=== PATIENT | female | born 1945 | race Caucasian/White ===

== ENCOUNTER 2016-12-11 10:53 | Inpatient (IN) ==
[~2016-12-11 10:53] MED LIST: DIPRIVAN 1% 100 ML ONE; QUELICIN ONE
[2016-12-11] MEDS ORDERED: EPINEPHRINE SYRINGE ONE (11:00)
[2016-12-11] MEDS ORDERED: DIPRIVAN 1% IV STA (11:01)
--- NOTE | 2016-12-11 11:10 | PROVIDER DOCUMENTATION ---
HPI-Cardiopulmonary Arrest - General Time Seen by Provider: 12/11/16 10:59 Source: RN notes reviewed Unable to obtain history due to:: other (pt condition) Allergies/Adverse Reactions: Allergies Allergy/AdvReac Type Severity Reaction Status Date / Time codeine Allergy RASH Verified 07/22/16 00:58 levofloxacin [From Levaquin] Allergy RASH Verified 07/22/16 00:58 pentazocine lactate * Allergy RASH Verified 07/22/16 00:58 [From Talwin] procaine HCl * Allergy RASH Verified 07/22/16 00:58 [From Novocain] propoxyphene HCl * Allergy RASH Verified 07/22/16 00:58 [From Darvon] Home Medications: Home Medication List Medication Instructions Recorded Confirmed Last Taken Type Calcium 1 tab PO DAILY 06/26/14 07/22/16 12/11/16 05:00 History Cetirizine HCl [Zyrtec] 10 mg PO DAILY 06/26/14 07/22/16 12/10/16 05:00 History Sitagliptin Phosphate [Januvia] 100 mg PO DAILY 05/07/16 07/22/16 12/10/16 05: 00 History Tizanidine HCl [Zanaflex] 4 mg PO DAILY 05/07/16 07/22/16 12/09/16 22:00 History Lactulose 30 ml PO BID 06/21/16 07/22/16 07/21/16 History Omeprazole [Prilosec] 20 mg PO DAILY 06/21/16 07/22/16 12/10/16 05:00 History Rifaximin [Xifaxan] 550 mg PO BID 06/21/16 07/22/16 07/21/16 History Spironolactone 25 mg PO DAILY 06/21/16 07/22/16 07/21/16 08:00 History Venlafaxine HCl 25 mg PO DAILY 06/21/16 07/22/16 12/10/16 05:00 History Insulin Glargine [Lantus] 20 unit SUBQ QHS #3 insuln.pen 06/27/16 07/22/1612/10 22:00 Rx Insulin Lispro [Humalog Kwikpen 100 unit SQ AC #0 06/27/16 07/22/16 07/21/16 08 :00 Rx U-100] Iron Carbonyl/Vit C/Vit B12/FA 1 each PO DAILY #90 tablet 06/27/16 07/22/16 05:00 Rx [Icar-C Plus] LISINOpril [Prinivil] 2.5 mg PO DAILY #30 tablet 06/27/16 07/22/16 12/10/16 05: 00 Rx Nadolol [Corgard] 20 mg PO DAILY #30 tablet 06/27/16 07/22/16 12/10/16 05:00 Rx Magnesium Amino Acid Chelate 100 mg PO DAILY 07/22/16 07/22/16 12/10/16 05:00 History [Magnesium] Tramadol HCl 50 mg PO Q6H PRN 07/22/16 07/22/16 07/21/16 History - History of Present Illness-C/P Arrest Initial Comments: patient is a 71 y/o F that coded in Ct scan. pt was there outpatient having lung biopsy in which she lost a pulse. Patient was give 5 minutes of CPR and intubate, pt was successfully revived and moved to the ER> Reason for Code Blue?: full arrest Witnessed arrest?: Yes Noted by:: nurse Bystander CPR?: Yes CPR initiated before doctor arrival?: Yes Down-time before ACLS? (in minutes, if known): 5 Initial Findings: unresponsive, asystole, no respirations, no pulse Treatment initiated prior to doctor arrival?: Initiated oxygen, Initiated CPR/ thumper Recently seen or treated by another doctor?: Yes Review of Systems - Adult - REVIEW OF SYSTEMS - ADULT ROS:: unobtainable per condition Constitutional: reports: see HPI All Other Systems: Reviewed and Negative Past History - Adult - PAST MEDICAL HISTORY-ADULT Review of Records: reports: Nursing Assessment Review, Medications Reviewed Cardiovascular: reports: HTN Respiratory: reports: asthma Gastrointestinal: reports: GERD Musculoskeletal: reports: arthritis Endocrine/Immune: reports: Diabetes - PRIOR SURGERIES/PROCEDURES Surgical/Procedure History: reports: hysterectomy, orthopedic (extremity) (toes and finger surgery), other (cataract removal) - IMMUNIZATION STATUS Childhood Immunizations: See Nurse Assessment Flu Vaccine: See Nurse Assessment - FAMILY HISTORY Family History: reviewed, not pertinent - SOCIAL HISTORY Smoking: quit greater than 1 year, cigarettes Living Situation: family Physical Exam-General - PHYSICAL EXAM-ADULT Exam Limited by: pt condition Initial Vital Signs Reviewed: Yes - CONSTITUTIONAL General Appearance: other (unresponsive) - HEAD, EARS, NOSE, MOUTH & THROAT HENMT: normocephalic/atraumatic, other (no vomit in oral airy). negative: angioedema - RESPIRATORY Respiratory: other (no respirations , breath sounds post intubation) - CARDIOVASCULAR Cardiovascular: other (no pulse, pt has pulse with chest compressions) - GASTROINTESTINAL (ABDOMEN) Abdominal Exam: soft. negative: distended - MUSCULOSKELETAL Extremity: no pedal edema. negative: deformity - SKIN Integumentary: cyanosis, pallor - PSYCHIATRIC Psych/Mental Status: other (unresponsive) Progress - PLAN OF CARE/RESULTS Progress/Plan/Lab Results: patient was given 5 minutes of CPR in which patient regained spontaneous pulse post intubation. pt was then moved to the ER 1130-pt was extubated by , pt was a/o x 3 and talking. Vital Signs Pulse BP Pulse Ox 12/11/16 12:04 86 117/68 100 12/11/16 11:55 86 125/58 100 12/11/16 11:50 93 H 127/55 100 12/11/16 11:45 88 135/63 100 12/11/16 11:40 89 135/60 100 12/11/16 11:35 92 H 144/66 98 12/11/16 11:30 96 H 144/66 92 L 12/11/16 11:26 99 H 163/91 92 L 12/11/16 11:20 100 H 174/117 86 L 12/11/16 11:17 98 H 161/101 81 L 12/11/16 11:11 84 115/69 92 L 12/11/16 11:05 93 H 132/81 91 L 12/11/16 11:00 90 103/69 97 12/11/16 10:56 96 H 126/74 99 codeine Allergy (Verified 07/22/16 00:58) RASH levofloxacin [From Levaquin] Allergy (Verified 07/22/16 00:58) RASH pentazocine lactate * [From Talwin] Allergy (Verified 07/22/16 00:58) RASH procaine HCl * [From Novocain] Allergy (Verified 07/22/16 00:58) RASH propoxyphene HCl * [From Darvon] Allergy (Verified 07/22/16 00:58) RASH Calcium 1 tab PO DAILY 06/26/14 Cetirizine HCl [Zyrtec] 10 mg PO DAILY 06/26/14 Sitagliptin Phosphate [Januvia] 100 mg PO DAILY 05/07/16 Tizanidine HCl [Zanaflex] 4 mg PO DAILY 05/07/16 Lactulose 30 ml PO BID 06/21/16 Omeprazole [Prilosec] 20 mg PO DAILY 06/21/16 Rifaximin [Xifaxan] 550 mg PO BID 06/21/16 Spironolactone 25 mg PO DAILY 06/21/16 Venlafaxine HCl 25 mg PO DAILY 06/21/16 Insulin Glargine [Lantus] 20 unit SUBQ QHS #3 insuln.pen 06/27/16 Insulin Lispro [Humalog Kwikpen U-100] 100 unit SQ AC #0 06/27/16 Iron Carbonyl/Vit C/Vit B12/FA [Icar-C Plus] 1 each PO DAILY #90 tablet LISINOpril [Prinivil] 2.5 mg PO DAILY #30 tablet 06/27/16 Nadolol [Corgard] 20 mg PO DAILY #30 tablet 06/27/16 Magnesium Amino Acid Chelate [Magnesium] 100 mg PO DAILY 07/22/16 Tramadol HCl 50 mg PO Q6H PRN 07/22/16 Orders Category Date Time Status Cardiac Monitoring DIRECTED Care 12/11/16 11:01 Active Neurological Check Q12-HR ASSESS Care 12/11/16 11:01 Active Oxygen Therapy- ED Nursing DIRECTED Care 12/11/16 11:01 Active Saline Loc NOW Care 12/11/16 11:01 Active CHEST-PORTABLE [RAD] Stat Exams 12/11/16 11:21 Taken CBC WITH ELECTRONIC DIFF [HEME] Stat Lab 12/11/16 11:01 Uncollected CK PROFILE [SP CHEM] Stat Lab 12/11/16 11:01 Uncollected COMPREHENSIVE METABOLIC PANEL [CHEM] Stat Lab 12/11/16 11:01 Uncollected MAGNESIUM [CHEM] Stat Lab 12/11/16 11:01 Uncollected PRO B-NATRIURETIC PEPTIDE Stat Lab 12/11/16 11:01 Uncollected PROTIME WITH INR [COAG] Stat Lab 12/11/16 11:01 Uncollected PTT [COAG] Stat Lab 12/11/16 11:01 Uncollected TROPONIN T Stat Lab 12/11/16 11:01 Uncollected Epinephrine Syringe Med 12/11/16 11:00 Discontinued 1 mg .ROUTE .STK-MED ONE Propofol [Diprivan 1%] Med 12/11/16 11:01 Discontinued 10 mg IV STAT STA Propofol [Diprivan 1%] 100 ml Med 12/11/16 11:15 Active IV As Directed EKG [EKG] Stat Ther 12/11/16 11:01 Ordered spoke with accepts pt to his service - XRAY 1 XRAY Study: Chest Impression: Abnormal XRAY Interpretation: 5% pneumothroax on right upper lung - CONSULTS/PCP/HOSPITALIST Notification #1 *Consult/PCP/Hospitalist*: Dr. Carina Steven Time Discussed: 11:07 Consult Disposition: Will see in ED #2 Consult: Dr. Reich Time Discussed: 11:15 Procedures - INTUBATION Time of Intubation: 10:53 Mallampati Class: 1 Intubation Method: orotracheal Equipment: ETT Tube Size (cm): 7.5 Pretreated with 100% Oxygen?: Yes Breath Sounds after Intubation: equal ETT Primary Tube Confirmation: Capnometry CO2 Change, Direct Visualization, Chest Rise and Fall Intubation Complications: no complications Vent Settings: See Respiratory Therapy Notes Departure - Departure Time of Disposition Order: 12:15 DIAGNOSIS: Cardiac arrest, Pneumothorax on left Acute respiratory failure Qualifiers: Respiratory failure complication: hypoxia Qualified Code(s): J96.01 - Acute respiratory failure with hypoxia Disposition: ADMITTED INPATIENT 09 Certified Medical Emergency: Emergent Condition: Stable - Critical Care Note Total Time (mins): 45 Critical Care Statement: This patient required my direct personal management to treat or rule out processes, the absence of which, could potentiallly result in sudden, clinically significant life or limb threatening deterioration. Attestation - Scribe Verification/Attestation Scribe:: Parveen Guzman Acting as Scribe for:: Carlota Hsu Scribe documention review:: This chart was documented by a scribe and accurately reflects the service the provider performed and the decisions made by the provider. Physician Attestation - Physician Attestation I, the provider, attest to the following statement:: Carlota Hsu Physician documentation Attestation:: This documentation recorded by the scribe accurately reflects the service I personally performed and the decisions made by me.
[2016-12-11] MEDS ORDERED: DIPRIVAN 1% 100 ML IV SCH (11:15)
--- NOTE | 2016-12-11 12:24 | Diag Imaging Result Document ---
PROCEDURE NAME: CHEST-PORTABLE - 12/11/2016 AP PORTABLE UPRIGHT CHEST AT 1130 HOURS: FINDINGS: There is a small apical pneumothorax on the left measuring less than 9 mm. This was not present on 06/25/2016, which is the most recent previous chest radiograph. There are patchy alveolar opacities, particularly visible over the lingula, secondary to recent left upper lobe biopsy and pulmonary hemorrhage. The heart size and pulmonary vascularity are within normal limits. IMPRESSION: Pulmonary hematoma in the left upper lobe. Small left apical pneumothorax. Dr. Jamey Steven is aware of this complication. [facility]
[2016-12-11 12:37] LABS: MANUAL DIFF NEEDED? NO
[2016-12-11] MEDS ORDERED: ZOFRAN IV PRN (12:37)
[2016-12-11] MEDS ORDERED: TYLENOL PO PRN (12:37)
[2016-12-11 12:47] LABS: BASO% 0.2 % (0.0-0.8); EOS# 0.25 X1000 (0.0-0.7); EOS% 2.7 % (0.0-10.0); HEMOGLOBIN 13.8 g/dL (12.0-16.0); IMM GRAN# 0.04 X1000 (0.0-0.04); IMM GRAN% 0.4 % (0.0-0.5); LYMPH# 1.31 X1000 (1.2-3.4); LYMPH% 14.1 % (20.5-51.1); MCHC 33.7 g/dL (33-37); MCV 95.1 FL (81-99); MONO% 5.4 % (1.7-9.3); MPV 10.3 FL (7.4-10.4); NEUT% 77.2 % (42.2-75.2); PLT 99 X1000 (130-400); RBC 4.31 XMIL (4.2-5.4)
[2016-12-11 12:50] LABS: INR 1.2; PROTIME 12.7 Seconds (9.2-11.7); PTT 28.7 Seconds (22.0-36.0)
[2016-12-11 12:57] LABS: AGAP 12; ALBUMIN 3.1 g/dL (3.5-5.0); ALKALINE PHOSPHATASE 102 U/L (32-104); BUN 12 mg/dL (8-22); CALCIUM 8.9 mg/dL (8.8-10.2); CHLORIDE 98 mmol/L (98-107); CK PROFILE 67 U/L (24-173); COSMO 281; GOT 35 U/L (10-30); GPT 17 U/L (10-36); MAGNESIUM 1.4 mg/dL (1.5-2.7); POTASSIUM 4.9 mmol/L (3.5-5.1); SODIUM 137 mmol/L (136-145); TCO2 27 mmol/L (25-35); TOTAL BILIRUBIN 2.14 mg/dL (0.20-1.00); TOTAL PROTEIN 6.8 g/dL (6.3-8.3)
[2016-12-11] MEDS ORDERED: ZOFRAN ONE (13:09)
[2016-12-11] MEDS ORDERED: DILAUDID ONE (13:09)
[2016-12-11] MEDS ORDERED: DILAUDID IV ONE (13:16)
[2016-12-11] MEDS ORDERED: ZOFRAN IV ONE (13:16)
[2016-12-11] MEDS: NS 1,000 ML IV SCH ×2 (13:23→19:54)
--- NOTE | 2016-12-11 16:21 | Diag Imaging Result Document ---
PROCEDURE NAME: CHEST-PORTABLE - 12/11/2016 AP SEMI-UPRIGHT PORTABLE CHEST AT 1600 HOURS: FINDINGS: There is a small apical pneumothorax which is even smaller in appearance than on the previous study at 1130 hours measuring less than 3 mm in thickness. This film is also with slightly more in expiration than the previous exam. There is still hazy opacity over the lingula. IMPRESSION: Diminishing left pneumothorax.
[2016-12-11] MEDS ORDERED: APRESOLINE IV PRN (19:54)
[2016-12-11] MEDS ORDERED: NS 1,000 ML IV SCH (20:02)
[2016-12-11 20:24] LABS: URINE CULTURE NEEDED? NO; URINE MICRO REVIEW NEEDED? NO; URINE SOURCE CATH
[2016-12-11 20:27] LABS: BILIRUBIN URINE NEGATIVE (NEGATIVE); BLOOD URINE TRACE (NEGATIVE); COLOR YELLOW; GLUCOSE URINE NEGATIVE (NEGATIVE); LEUKOCYTES URINE NEGATIVE (NEGATIVE); NITRITE URINE NEGATIVE (NEGATIVE); PH URINE 5.5; PROTEIN URINE TRACE mg/dL (NEGATIVE); SP GRAVITY URINE 1.015; TURBIDITY URINE CLEAR (CLEAR); UR EPITHELIAL CELLS <10 /HPF (<10); URINE BACTERIA 4+ /HPF; URINE RBC <10 /HPF (<10); URINE WBC <10 /HPF (<10); UROBILINOGEN URINE NORMAL (NORMAL)
[2016-12-11] MEDS: LACTULOSE PO SCH (20:33)
[2016-12-11] MEDS: HUMULIN R SUBQ SCH (20:33)
[2016-12-11] MEDS: XIFAXAN PO SCH (20:33)
[2016-12-11] MEDS ORDERED: MAGNESIUM SULFATE 2 GM/S.W.I. 50 ML IV ONE (22:07)
[2016-12-11 22:32] LABS: AGAP 13; ALBUMIN 3.2 g/dL (3.5-5.0); ALKALINE PHOSPHATASE 94 U/L (32-104); BUN 15 mg/dL (8-22); CALCIUM 8.7 mg/dL (8.8-10.2); CHLORIDE 100 mmol/L (98-107); COSMO 283; GOT 35 U/L (10-30); GPT 17 U/L (10-36); POTASSIUM 5.8 mmol/L (3.5-5.1); SODIUM 139 mmol/L (136-145); TCO2 26 mmol/L (25-35); TOTAL BILIRUBIN 2.52 mg/dL (0.20-1.00); TOTAL PROTEIN 6.2 g/dL (6.3-8.3)
--- NOTE | 2016-12-11 22:51 | HISTORY AND PHYSICAL ---
CHIEF COMPLAINT: Acute respiratory distress post left lung biopsy by Dr. Garg. HISTORY OF PRESENT ILLNESS: She is a 71-year-old white female, who was evaluated in my office on the 11/23/2016 for the pulmonary nodule. It has been growing in size in the left mid lung. Patient has been referred to Dr. Steven. Dr. Steven has been scheduled for a CT-guided biopsy. After the procedure. The patient developed hemoptysis, acute respiratory distress, required brief CPR and ACLS protocol. Transferred to the ER. Patient was seen by Dr. Hsu who extubated, admitted in ICU. In the ICU, patient hemodynamically stable. No complaints. Followup chest x- ray stable with a minimal pneumothorax. As a result, a hospital admission was warranted. PAST MEDICAL HISTORY: History of COPD/asthma. 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 Depression. Type 2 diabetes. Acid reflux disease. Hypertension. Osteoarthritis. Tobacco abuse. Acid reflux disease. Lichen sclerosus of vagina. PAST SURGICAL HISTORY: Bilateral cataract surgery. Appendectomy. Partial hysterectomy. Bilateral toe surgery. Recent lung biopsy. MEDICATIONS: Cetirizine 10 mg daily, calcium 500 daily, Zanaflex 4 mg daily, Januvia 100 daily, Effexor 25 daily, Prilosec 20 daily, Xifaxan 550 p.o. b.i.d., lactulose 30 p.o. b.i.d., Aldactone 25 daily, Lantus 20 units subcutaneous at bedtime, Icar C Plus 1 tablet daily, lisinopril 2.5 mg daily, nadolol 20 mg daily, insulin lispro 10 units subcutaneous a.c. t.i.d., tramadol 50 q.6 hours, magnesium 100 daily. ALLERGIES: Codeine and Levaquin. SOCIAL HISTORY: . 3 children. Lives in [place]. No smoking. No alcohol. FAMILY HISTORY: Father of cancer, not known. Mom of MVA at 88. HEALTH MAINTENANCE: Flu vaccine 2015, pneumococcal vaccine 2015, mammography 2012. Last colonoscopy [address] Dye. REVIEW OF SYSTEMS: HEENT: No headache. Vision problem. No earache. No sore throat. Neck: No goiter. No lymphadenopathy. No bruit. Cardiopulmonary: Coughing blood. No shortness of breath, wheezing. No chest pain. GI: No nausea, vomiting. Lower abdominal discomfort. : Bladder scan 400 mL and no dysuria. Extremities: No swelling of feet. No joint pain. Neurologic: No focal symptoms or weakness or seizures. PHYSICAL EXAMINATION: VITAL SIGNS: Afebrile, stable on nasal cannula 5 L on 92%. 5 feet 2, 133 pounds. HEENT: Atraumatic, normocephalic. Pupils equal, react to light. JVD is normal. CHEST: Bilateral air entry. HEART: Sounds are regular. ABDOMEN: Belly is soft, nontender. Good bowel sounds. Bladder was distended. No signs of peritonitis. EXTREMITIES: No peripheral edema cyanosis clubbing. NEUROLOGIC: No obvious focal deficits. INVESTIGATIONS: CBC: White cell count 9.3, hematocrit 41, platelets 99,000. PT 12, INR 1.2. SMA7 is normal. Glucose 238. Magnesium 1.4. Total bilirubin slightly high. ProBNP is normal. Urinalysis is clear. Chest x-ray on 12/11/2016, diminishing left pneumothorax. Slight hazy opacities over the left lingula. ASSESSMENT AND PLAN: 1. A 71-year-old white female, admitted to the hospital post left mid nodule biopsy complicated by hemoptysis, respiratory distress and small pneumothorax, stable. Admission to intensive care unit, oxygen. 2. History of cirrhosis of liver due to lactulose. Decrease intravenous fluids. Continue on the Xifaxan, lactulose, nadolol, Aldactone. 3. Depression. On Effexor. 4. Allergies, on Zyrtec. 5. Hypomagnesemia, on replacement with magnesium. 6. Chronic pain, taking Ultram as needed. 7. Bladder distention, cut down the fluids. Ribeiro catheter as needed. 8. Type 2 diabetes. Follow up on sliding scale with insulin coverage. We will follow up on the biopsy results and also check the x-ray in the morning.
[2016-12-12 04:35] LABS: ALLEN TEST YES; BLOOD TYPE ARTERIAL; DRAW SITE R RADIAL; METHB 1.8 % (0.0-1.5); O2(CT) 18.6 mL/dL (15.0-23.0); PCO2(98.6) 49 mmHg (35-45); PO2(98.6) 107 mmHg (60-100); SAMPLE BLOOD; SAO2 99.3 % (95.0-100.0); THB 13.8 g/dL (11.5-17.4); pH(98.6) 7.34 (7.35-7.45)
[2016-12-12 04:36] LABS: MODALITY PRB
[2016-12-12 04:47] LABS: MANUAL DIFF NEEDED? NO
[2016-12-12 04:49] LABS: BASO% 0.2 % (0.0-0.8); EOS% 1.6 % (0.0-10.0); HEMATOCRIT 40.2 % (37.0-47.0); HEMOGLOBIN 13.5 g/dL (12.0-16.0); IMM GRAN# 0.03 X1000 (0.0-0.04); IMM GRAN% 0.2 % (0.0-0.5); LYMPH# 1.68 X1000 (1.2-3.4); LYMPH% 13.7 % (20.5-51.1); MCHC 33.6 g/dL (33-37); MCV 95.3 FL (81-99); MONO# 1.21 X1000 (0.11-0.59); MONO% 9.9 % (1.7-9.3); MPV 9.7 FL (7.4-10.4); NEUT% 74.4 % (42.2-75.2); PLT 108 X1000 (130-400); RBC 4.22 XMIL (4.2-5.4)
[2016-12-12] MEDS: HUMULIN R SUBQ SCH ×4 (06:17→20:25)
--- NOTE | 2016-12-12 07:55 | Diag Imaging Result Document ---
PROCEDURE NAME: CHEST-PORTABLE - 12/12/2016 AP PORTABLE CHEST AT 0600 HOURS: FINDINGS: There is alveolar opacity in the lingula which is worse than on 12/11/2016. This is presumably due to the perilesional hemorrhage which occurred following the biopsy. There is no evidence of residual pneumothorax. Otherwise, there has been no significant change. IMPRESSION: Post biopsy pulmonary hematoma in the lingula.
[2016-12-12] MEDS: JANUVIA PO SCH (08:51)
[2016-12-12] MEDS: ZYRTEC PO SCH (08:51)
[2016-12-12] MEDS: CORGARD PO SCH (08:51)
[2016-12-12] MEDS: EFFEXOR PO SCH (08:52)
[2016-12-12] MEDS: CALTRATE 600 + D PO SCH (08:52)
[2016-12-12] MEDS: ICAR-C PLUS PO SCH (08:52)
[2016-12-12] MEDS: MAG-OX PO SCH (08:52)
[2016-12-12] MEDS: XIFAXAN PO SCH ×2 (08:53→20:25)
[2016-12-12] MEDS: ULTRAM PO PRN ×2 (08:53→15:26)
[2016-12-12] MEDS: PRINIVIL PO SCH (08:53)
[2016-12-12] MEDS: ALDACTONE PO SCH (08:54)
[2016-12-12] MEDS: LACTULOSE PO SCH ×2 (08:54→20:25)
[2016-12-12 13:49] LABS: ALLEN TEST YES; BE 3.5 mmoll (-3.0-3.0); BLOOD TYPE ARTERIAL; DRAW SITE L RADIAL; METHB 1.7 % (0.0-1.5); O2(CT) 17.3 mL/dL (15.0-23.0); PCO2(98.6) 47 mmHg (35-45); PO2(98.6) 57 mmHg (60-100); SAMPLE BLOOD; SAO2 94.3 % (95.0-100.0); THB 13.8 g/dL (11.5-17.4)
[2016-12-12 13:53] LABS: MODALITY CANNULA
[2016-12-13] MEDS: ULTRAM PO PRN (05:29)
[2016-12-13] MEDS: HUMULIN R SUBQ SCH ×4 (06:03→20:05)
[2016-12-13] MEDS: EFFEXOR PO SCH (08:40)
[2016-12-13] MEDS: LACTULOSE PO SCH ×3 (08:40→20:05)
[2016-12-13] MEDS: JANUVIA PO SCH (08:40)
[2016-12-13] MEDS: ICAR-C PLUS PO SCH (08:40)
[2016-12-13] MEDS: MAG-OX PO SCH (08:41)
[2016-12-13] MEDS: XIFAXAN PO SCH ×2 (08:41→20:06)
[2016-12-13] MEDS: CALTRATE 600 + D PO SCH (08:41)
[2016-12-13] MEDS: ZYRTEC PO SCH (08:41)
[2016-12-13] MEDS: ALDACTONE PO SCH (08:41)
[2016-12-13] MEDS: PRINIVIL PO SCH (08:41)
[2016-12-13] MEDS: CORGARD PO SCH (08:41)
[2016-12-14] MEDS: LANTUS SUBQ SCH ×2 (04:02→20:18)
[2016-12-14 05:10] LABS: ALLEN TEST YES; BE 1.9 mmoll (-3.0-3.0); BLOOD TYPE ARTERIAL; DRAW SITE R RADIAL; METHB 1.5 % (0.0-1.5); O2(CT) 26.3 mL/dL (15.0-23.0); PO2(98.6) 65 mmHg (60-100); SAMPLE BLOOD; SAO2 94.7 % (95.0-100.0); THB 20.8 g/dL (11.5-17.4); pH(98.6) 7.33 (7.35-7.45)
[2016-12-14 05:12] LABS: PCO2(98.6) 57 mmHg (35-45)
[2016-12-14 05:13] LABS: MODALITY CANNULA
[2016-12-14 06:20] LABS: MANUAL DIFF NEEDED? NO
[2016-12-14 06:28] LABS: BASO% 0.3 % (0.0-0.8); EOS# 0.33 X1000 (0.0-0.7); EOS% 3.4 % (0.0-10.0); HEMATOCRIT 38.2 % (37.0-47.0); HEMOGLOBIN 12.9 g/dL (12.0-16.0); IMM GRAN# 0.02 X1000 (0.0-0.04); IMM GRAN% 0.2 % (0.0-0.5); LYMPH# 2.35 X1000 (1.2-3.4); LYMPH% 24.3 % (20.5-51.1); MCH 32.1 PG (27-31); MCHC 33.8 g/dL (33-37); MONO# 1.08 X1000 (0.11-0.59); MONO% 11.2 % (1.7-9.3); MPV 10.1 FL (7.4-10.4); NEUT% 60.6 % (42.2-75.2); PLT 125 X1000 (130-400); RBC 4.02 XMIL (4.2-5.4)
[2016-12-14 06:33] LABS: INR 1.08; PROTIME 11.4 Seconds (9.2-11.7)
[2016-12-14] MEDS: PRILOSEC PO SCH (06:37)
[2016-12-14] MEDS: HUMULIN R SUBQ SCH ×3 (06:37→17:11)
[2016-12-14 06:43] LABS: AGAP 9; ALKALINE PHOSPHATASE 93 U/L (32-104); BUN 20 mg/dL (8-22); CALCIUM 9.9 mg/dL (8.8-10.2); CHLORIDE 98 mmol/L (98-107); COSMO 286; GOT 26 U/L (10-30); GPT 13 U/L (10-36); POTASSIUM 5.2 mmol/L (3.5-5.1); SODIUM 139 mmol/L (136-145); TCO2 32 mmol/L (25-35); TOTAL BILIRUBIN 2.55 mg/dL (0.20-1.00); TOTAL PROTEIN 6.6 g/dL (6.3-8.3)
[2016-12-14] MEDS: EFFEXOR PO SCH (08:21)
[2016-12-14] MEDS: ICAR-C PLUS PO SCH (08:21)
[2016-12-14] MEDS: XIFAXAN PO SCH ×2 (08:22→20:18)
[2016-12-14] MEDS: JANUVIA PO SCH (08:22)
[2016-12-14] MEDS: PRINIVIL PO SCH (08:22)
[2016-12-14] MEDS: LACTULOSE PO SCH ×2 (08:22→20:18)
[2016-12-14] MEDS: MAG-OX PO SCH (08:22)
[2016-12-14] MEDS: ALDACTONE PO SCH (08:22)
[2016-12-14] MEDS: CORGARD PO SCH (08:22)
[2016-12-14] MEDS: ZYRTEC PO SCH (08:22)
--- NOTE | 2016-12-14 08:42 | Diag Imaging Result Document ---
PROCEDURE NAME: CHEST-2 VIEWS - 12/14/2016 SEATED AP AND LATERAL RADIOGRAPH OF THE CHEST: COMPARISON: 12/12/2016. FINDINGS: There has been interval improvement of the small post-biopsy lingular hematoma. It is decreasing in density. No residual pneumothorax is identified. There are no new consolidations. Cardiac silhouette is stable. IMPRESSION: Improving mild focal post-biopsy hematoma at the lingula.
[2016-12-14] MEDS ORDERED: LACTULOSE PO ONE (10:29)
[2016-12-14] MEDS ORDERED: INSULIN PEN NEEDLES ONE (15:48)
[2016-12-15] MEDS: HUMULIN R SUBQ SCH ×6 (04:36→20:10)
[2016-12-15] MEDS: PRILOSEC PO SCH (06:02)
[2016-12-15] MEDS: LACTULOSE PO SCH ×3 (08:48→21:48)
[2016-12-15] MEDS: JANUVIA PO SCH (08:49)
[2016-12-15] MEDS: ICAR-C PLUS PO SCH (08:49)
[2016-12-15] MEDS: EFFEXOR PO SCH (08:49)
[2016-12-15] MEDS: PRINIVIL PO SCH (08:50)
[2016-12-15] MEDS: ALDACTONE PO SCH (08:52)
[2016-12-15] MEDS: CORGARD PO SCH (08:52)
[2016-12-15] MEDS: ZYRTEC PO SCH (08:53)
[2016-12-15] MEDS: MAG-OX PO SCH (08:53)
[2016-12-15] MEDS: XIFAXAN PO SCH ×3 (11:09→20:10)
[2016-12-15] MEDS: LANTUS SUBQ SCH ×2 (19:46→20:10)
[2016-12-15] MEDS: ULTRAM PO PRN (20:19)
[2016-12-16] MEDS: HUMULIN R SUBQ SCH ×4 (06:25→22:20)
[2016-12-16] MEDS: PRILOSEC PO SCH (06:25)
[2016-12-16] MEDS: JANUVIA PO SCH (09:00)
[2016-12-16] MEDS: ICAR-C PLUS PO SCH (09:00)
[2016-12-16] MEDS: CORGARD PO SCH (09:00)
[2016-12-16] MEDS: XIFAXAN PO SCH ×2 (09:00→22:20)
[2016-12-16] MEDS: ZYRTEC PO SCH (09:00)
[2016-12-16] MEDS: ALDACTONE PO SCH (09:00)
[2016-12-16] MEDS: EFFEXOR PO SCH (09:00)
[2016-12-16] MEDS: MAG-OX PO SCH (09:00)
[2016-12-16] MEDS: PRINIVIL PO SCH (09:00)
[2016-12-16] MEDS: LACTULOSE PO SCH ×2 (09:00→20:20)
--- NOTE | 2016-12-16 15:45 | Diag Imaging Result Document ---
PROCEDURE NAME: CHEST-2 VIEWS - 12/16/2016 TWO VIEW CHEST: TIME: 0821 hours. FINDINGS: The inspiration is suboptimal. Considering the degree of inspiration, there has been no significant change since the previous study of 12/14/2016. IMPRESSION: Stable chest.
[2016-12-16 16:27] LABS: ALLEN TEST YES; BE 5.4 mmoll (-3.0-3.0); BLOOD TYPE ARTERIAL; DRAW SITE R RADIAL; METHB 1.4 % (0.0-1.5); O2(CT) 14.1 mL/dL (15.0-23.0); PCO2(98.6) 46 mmHg (35-45); SAMPLE BLOOD; SAO2 86.2 % (95.0-100.0); THB 12.2 g/dL (11.5-17.4); pH(98.6) 7.43 (7.35-7.45)
[2016-12-16 17:03] LABS: MANUAL DIFF NEEDED? NO
[2016-12-16 17:13] LABS: BASO% 0.1 % (0.0-0.8); EOS# 0.21 X1000 (0.0-0.7); HEMATOCRIT 36.7 % (37.0-47.0); HEMOGLOBIN 12.5 g/dL (12.0-16.0); LYMPH# 1.83 X1000 (1.2-3.4); LYMPH% 26.4 % (20.5-51.1); MCH 31.9 PG (27-31); MCHC 34.1 g/dL (33-37); MCV 93.6 FL (81-99); MONO# 0.74 X1000 (0.11-0.59); MONO% 10.7 % (1.7-9.3); MPV 9.6 FL (7.4-10.4); NEUT% 59.8 % (42.2-75.2); PLT 117 X1000 (130-400); RBC 3.92 XMIL (4.2-5.4)
[2016-12-16 17:35] LABS: AGAP 11; ALBUMIN 2.9 g/dL (3.5-5.0); ALKALINE PHOSPHATASE 86 U/L (32-104); BUN 15 mg/dL (8-22); CALCIUM 9.3 mg/dL (8.8-10.2); CHLORIDE 99 mmol/L (98-107); COSMO 283; GOT 28 U/L (10-30); GPT 14 U/L (10-36); POTASSIUM 4.1 mmol/L (3.5-5.1); SODIUM 138 mmol/L (136-145); TCO2 28 mmol/L (25-35); TOTAL BILIRUBIN 2.09 mg/dL (0.20-1.00); TOTAL PROTEIN 6.6 g/dL (6.3-8.3)
[2016-12-16 18:08] LABS: MODALITY CANNULA; PO2(98.6) 43 mmHg (60-100)
[2016-12-16] MEDS: LANTUS SUBQ SCH (23:00)
[2016-12-17] MEDS: PRILOSEC PO SCH (06:17)
[2016-12-17] MEDS: HUMULIN R SUBQ SCH ×4 (06:17→20:36)
[2016-12-17] MEDS: XIFAXAN PO SCH ×2 (09:43→20:37)
[2016-12-17] MEDS: PRINIVIL PO SCH (09:44)
[2016-12-17] MEDS: MAG-OX PO SCH (09:44)
[2016-12-17] MEDS: CORGARD PO SCH (09:46)
[2016-12-17] MEDS: ICAR-C PLUS PO SCH (09:46)
[2016-12-17] MEDS: ALDACTONE PO SCH (09:46)
[2016-12-17] MEDS: JANUVIA PO SCH (09:46)
[2016-12-17] MEDS: ZYRTEC PO SCH (09:46)
[2016-12-17] MEDS: LACTULOSE PO SCH ×2 (09:47→20:37)
[2016-12-17] MEDS: ULTRAM PO PRN (09:47)
[2016-12-17] MEDS: EFFEXOR PO SCH (09:50)
--- NOTE | 2016-12-17 14:20 | PROGRESS NOTE ---
DATE: 12/17/2016 SUBJECTIVE: Interval history: Left lung biopsy came back squamous cell carcinoma. Results were discussed with the patient's daughter and the son-in-law at the bedside. The patient is confused, wandering around, wants to go home. She lives by herself. She has intermittent confusion. PAST MEDICAL HISTORY AND PAST SURGICAL HISTORY: Reviewed. MEDICATIONS: Reviewed. REVIEW OF SYSTEMS: Not offering any complaints other than confusion. Decreased coughing of blood. The rest of the review of systems is normal. PHYSICAL EXAMINATION: Vital Signs: Stable. Temperature is 98 degrees, respirations 18, blood pressure is 140/68. HEENT: Atraumatic, normocephalic. Pupils equal, react to light. Neck: Supple. No lymphadenopathy. Chest: Bilateral air entry. Heart: Sounds are regular. Abdomen: Belly is soft. No ascites noted. Extremities: No peripheral edema, cyanosis, or clubbing. Neurologic: Confused, wandering around, out of the bed. No asterixis noted. INVESTIGATIONS: CBC: White cell count 6.9, hematocrit 36, platelets 171,000. ABG: pH is 7.43, pCO2 of 46, PO2 of 43 on 28%. SMA 7 is normal. Glucose 200. Ammonia level 48. Pathology report: Squamous cell cancer of the lung. ASSESSMENT AND PLAN: 1. Lung cancer, squamous cell, non-small cell. Given her situation, she is not a candidate for further palliative chemotherapy or surgery. 2. Advance directives were discussed with the family members and potential palliative care. 3. 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 Better continue on Xifaxan and lactulose. 4. Type 2 diabetes, on Lantus and Januvia. 5. 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 Continue on the Aldactone and nadolol. 6. Anxiety/depression, on Effexor. 7. Plan of care discussed with the family at the bedside and advance directives. Possible palliative care agreed upon and we will make the arrangements with the social media marketing specialist in the morning. cc: MD Ángel Campos MD
[2016-12-17] MEDS: LANTUS SUBQ SCH (20:37)
[2016-12-18] MEDS: HUMULIN R SUBQ SCH ×3 (06:26→17:21)
[2016-12-18] MEDS: PRILOSEC PO SCH (06:26)
[2016-12-18] MEDS: PRINIVIL PO SCH (10:39)
[2016-12-18] MEDS: CORGARD PO SCH (10:39)
[2016-12-18] MEDS: ALDACTONE PO SCH (10:40)
[2016-12-18] MEDS: MAG-OX PO SCH (10:40)
[2016-12-18] MEDS: ICAR-C PLUS PO SCH (10:40)
[2016-12-18] MEDS: JANUVIA PO SCH (10:40)
[2016-12-18] MEDS: EFFEXOR PO SCH (10:41)
[2016-12-18] MEDS: ZYRTEC PO SCH (10:41)
[2016-12-18] MEDS: LACTULOSE PO SCH (10:42)
[2016-12-18] MEDS: XIFAXAN PO SCH (10:42)
[2016-12-18 16:47] VITALS: BP 138/62
--- NOTE | 2016-12-18 21:12 | DISCHARGE SUMMARY ---
ADMISSION DATE: 12/11/2016 DISCHARGE DATE: 12/18/2016 DISCHARGING DIAGNOSIS: Acute respiratory failure due to post left lung biopsy associated with hemoptysis and small pneumothorax, resolving. SECONDARY DIAGNOSES: 1. Cirrhosis due to nonalcoholic steatohepatitis. 2. Depression. 3. Type 2 diabetes. 4. 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 5. Hypertension. 6. Osteoarthritis. 7. Acid reflux disease. 8. Lichen sclerosis et atrophicus. 9. Non-small cell lung cancer of the left lung. CONSULTANTS: Dr. Steven. PROCEDURES: CPR, ACLS protocol with intubation in the Radiology Department. BRIEF HISTORY: Please see the H and P that was done on 12/11/2016. In brief, she is a 71-year- old white female, who was admitted to the hospital after she had outpatient procedure for left lung nodule biopsy by Dr. Garg. After the biopsy, she developed acute respiratory distress and hemoptysis. She was intubated and performed CPR and the ER subsequently extubated, transferred to the ICU. The patient has a lot of pain due to CPR and has a hematoma at the site of the biopsy. She also developed a small pneumothorax which is slowly resolving. She was coughing up quite a bit of blood and basically was given IV fluids, antibiotics and bronchodilators. She also has confusion due to ammonia encephalopathy requiring lactulose. After stabilized, she was transferred out of the ICU in a stable condition. Left lung biopsy showed squamous cell carcinoma. Given her comorbid conditions and the cirrhosis, she is not a candidate for any further palliative chemotherapy or lung resection. I did discuss with the patient and the daughter. They do not want to do anything and continue supportive care. Family agreed upon for outpatient hospice care. LABORATORIES: CBC: White cell count 6.9, hematocrit 36, platelets 117,000. ABG: PH is 7.43, pCO2 46, PO2 43 on 28%. SMA : Sodium 138, potassium 4.1, chloride 99, BUN 15, creatinine 0.6, glucose 13. Blood sugars were running around 200. Total bilirubin 2. LFTs were normal. IMAGING: Chest x-ray: Significant improvement of hematoma in the left lung. DISCHARGE INSTRUCTIONS: 1. Do Not Resuscitate level 1. 2. Outpatient hospice care. Zyrtec 10 mg daily, calcium 500 daily, Zanaflex 4 mg daily, Januvia 100 daily, Effexor 25 daily, Prilosec 20 daily, Xifaxan 550 p.o. b.i.d., lactulose 30 mL p.o. b.i.d., Aldactone 25 mg daily, Lantus 20 units subcutaneous at 9 p.m. Icar C Plus 1 tablet daily. Prinivil 2.5 mg daily, nadolol 20 mg daily, Mag oxide 100 daily, tramadol 50 q.6 as needed, oxygen as needed. Outpatient hospital bed and continue to monitor her progress through the IDG meetings. cc: MD Ángel Campos MD
== END 2016-12-18 18:33 | disposition hospice, home (50) ==
LOC: ED 10:53 → EDIPHOLD 13:06 → ICU 15:28 → 4N 12-14 03:51 → DIRADM 12-15 10:08 → 4N 12-15 10:11
PROVIDERS: ADMIT Surgery; ATTEND Internal Medicine

== ENCOUNTER 2017-03-29 11:14 | Inpatient (IN) ==
[2017-03-29] MEDS ORDERED: EUCERIN CREAM TOP PRN (16:12)
[2017-03-29] MEDS ORDERED: BENADRYL PO PRN (16:13)
[2017-03-29] MEDS ORDERED: PYRIDIUM PO SCH (16:15)
[2017-03-29] MEDS ORDERED: GLYCERIN ADULT PR PRN (16:16)
[2017-03-29] MEDS ORDERED: DULCOLAX PR PRN (16:17)
[2017-03-29] MEDS ORDERED: FLEET ENEMA PR PRN (16:20)
[2017-03-29] MEDS ORDERED: MAALOX PLUS LIQUID PO PRN (16:21)
[2017-03-29] MEDS ORDERED: ROBITUSSIN-DM PO PRN (16:22)
[2017-03-29] MEDS ORDERED: TYLENOL PR PRN (16:22)
[2017-03-29] MEDS ORDERED: TYLENOL PO PRN (16:22)
[2017-03-29] MEDS ORDERED: LEVSIN-SL SL PRN (16:26)
[2017-03-29] MEDS ORDERED: HUMALOG SUBQ PRN (16:27)
[2017-03-29] MEDS ORDERED: PATIENT'S OWN MED TOP PRN (16:33)
[2017-03-29] MEDS ORDERED: ZOFRAN PO PRN (16:34)
[2017-03-29] MEDS: HUMALOG SUBQ SCH (17:37)
[2017-03-29] MEDS: DESYREL PO SCH (20:56)
[2017-03-29] MEDS: LACTULOSE PO SCH (20:56)
[2017-03-29] MEDS: PERICOLACE PO SCH (20:56)
[2017-03-29] MEDS: LANTUS SUBQ SCH (20:57)
--- NOTE | 2017-03-29 23:50 | HISTORY AND PHYSICAL ---
SUBJECTIVE: Respite care for 5 days. HISTORY OF PRESENT ILLNESS: She is a 71-year-old white female patient of mine, under the hospice care. Admitted to the hospital for respite care for 5 days. She has a history of lung cancer on the left side, and cirrhosis of the liver, declining of activities instrumental at home under hospice, not offering any complaints. PAST MEDICAL HISTORY: COPD, cirrhosis due to LORENZ, depression, type 2 diabetes, acid reflux disease, hypertension, osteoarthritis, history of tobacco abuse, lichen sclerosis, left lung cancer. PAST SURGICAL HISTORY: Bilateral cataracts, appendectomy, partial hysterectomy, bilateral toe surgery. MEDICINES: Cetirizine 10 mg daily, calcium 500 daily, Zanaflex 4 mg daily, Januvia 100 daily, Effexor 25 daily, Prilosec 20 daily, Xifaxan 550 p.o. b.i.d., lactulose 30 p.o. b.i.d., Aldactone 25 daily, Lantus 20 units subcutaneous at bedtime, Icar-C Plus daily, lisinopril 2.5 daily, nadolol 20 daily, magnesium 100 mg daily, tramadol 50 q.6. ALLERGIES: Codeine, Levaquin. SOCIAL HISTORY: , 3 children. Lives in [place] with daughter. No smoking, no alcohol. FAMILY HISTORY: Father of cancer, not known. Mom of MVA at 88. HEALTH MAINTENANCE: Living will, DNR. REVIEW OF SYSTEMS: HEENT: No headache. No vision problem. No earache. No sore throat. Neck: No goiter. No lymphadenopathy. No bruit. Cardiopulmonary: No chest pain, shortness of breath, PND, orthopnea. Gastrointestinal: No swelling of abdomen. No nausea, altered bowel habits. Extremities: No swelling of feet. No joint pain. Neurologic: No focal symptoms or weakness. PHYSICAL EXAMINATION: VITAL SIGNS: Afebrile. Blood pressure is 170/80. 5 feet 2 inches, 130 pounds. On room air, pulse ox 94%. HEENT: Atraumatic, normocephalic. Pupils equal, reacting to light. NECK: Supple. No lymphadenopathy. CHEST: Bilateral air entry. HEART: Sounds are regular. ABDOMEN: Belly is soft. No hepatosplenomegaly. No ascites. EXTREMITIES: No peripheral edema or cyanosis. NEUROLOGIC: No obvious neurological deficits. ASSESSMENT AND PLAN: 1. A 71-year-old white female with a diagnosis of left lung cancer, cirrhosis of liver, admitted to the hospital for respite care for 5 days. 2. Left lung cancer, stable growth. 3. Type 2 diabetes, on Lantus on sliding scale. 4. Cirrhosis of liver with nonalcoholic steatohepatitis. Continue on Corgard, Aldactone, and nadolol. Ammonia encephalopathy and lactulose. 5. Chronic anxiety and depression, on trazodone and Effexor. Living will, DNR. Continue present palliative services, care of the skin, bladder, and bowels for the next 5 days. cc: Roman Reich MD
[2017-03-30] MEDS: PRILOSEC PO SCH (06:47)
[2017-03-30] MEDS: HUMALOG SUBQ SCH ×3 (06:47→17:39)
[2017-03-30] MEDS: PERICOLACE PO SCH ×2 (10:42→20:50)
[2017-03-30] MEDS: CALTRATE 600 PO SCH (10:42)
[2017-03-30] MEDS: ALDACTONE PO SCH (10:42)
[2017-03-30] MEDS: EFFEXOR PO SCH (10:42)
[2017-03-30] MEDS: CORGARD PO SCH (10:42)
[2017-03-30] MEDS: JANUVIA PO SCH (10:43)
[2017-03-30] MEDS: PATIENT'S OWN MED PO SCH (10:43)
[2017-03-30] MEDS: ZYRTEC PO SCH (10:43)
[2017-03-30] MEDS: LACTULOSE PO SCH ×2 (10:43→20:50)
--- NOTE | 2017-03-30 20:12 | PROGRESS NOTE ---
DATE: 03/30/2017 SUBJECTIVE: Respite care for 5 days. The patient is confused and is getting out of the bed. Stooling in the bed is noted, foul smelling. REVIEW OF SYSTEMS: None reported. OBJECTIVE: Vital Signs: Afebrile. Blood pressure is 160/72. Oxygen saturation on room air is 95%. HEENT: Within normal limits. Neck: Supple. Chest: Clear. Heart: Sounds are regular. Abdomen: The belly is soft and nontender. No ascites. Neurological: No asterixes noted. ASSESSMENT AND PLAN: 1. End-stage cirrhosis of the liver due to nonalcoholic steatohepatitis. 2. Left lung cancer. 3. Diabetes. 4. Chronic anxiety. 5. Declining of activities of daily living and PPS score 50% Continue the present palliative services for the next 4 days. Living Will. Do Not Resuscitate. LEVEL OF DOCUMENTATION: 15 minutes. cc: Roman Reich MD MTDD
[2017-03-30] MEDS: ROXANOL CONC. LIQUID SL PRN (20:48)
[2017-03-30] MEDS: DESYREL PO SCH (20:49)
[2017-03-30] MEDS: ATIVAN PO PRN (20:49)
[2017-03-30] MEDS: LANTUS SUBQ SCH (21:01)
[2017-03-31] MEDS: ROXANOL CONC. LIQUID SL PRN ×5 (01:10→21:36)
[2017-03-31] MEDS: PRILOSEC PO SCH ×2 (06:09→06:13)
[2017-03-31] MEDS: ATIVAN PO PRN ×2 (06:09→21:37)
[2017-03-31] MEDS: HUMALOG SUBQ SCH ×3 (06:12→17:29)
[2017-03-31] MEDS ORDERED: CATAPRES PO PRN (08:18)
--- NOTE | 2017-03-31 08:39 | PROGRESS NOTE ---
DATE: 03/31/2017 SUBJECTIVE: A 71-year-old white female patient admitted for respite care. The patient is doing better. She denied any unusual cough, expectoration. No fever or chills, nausea or vomiting. Oral intake is fair. No diarrhea. No dysuria or hematuria. History part was limited. Admission history and physical noted. OBJECTIVE: Vital Signs: Vital signs reviewed. Patient is afebrile. At times, blood pressure is high. Neck: Supple. No JVD. Lungs: Bibasilar crepitation. Heart: S1 and S2 heard. Abdomen: Soft, globular. Bowel sounds present. Extremities: No cyanosis, clubbing. No acute DVT. 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 CONSIDERATION: 1. History of left lung cancer. 2. 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 3. Diabetes mellitus on Lantus. 4. Hypertension. Patient is on sliding scale insulin. PLAN: We will continue current treatment. Close observation. At times, patient blood pressure is staying high. I am going to add clonidine on p.r.n. basis. Continue rest of the treatment. cc: MD Roman Grimm MD
[2017-03-31] MEDS: ZYRTEC PO SCH (09:33)
[2017-03-31] MEDS: CORGARD PO SCH (09:33)
[2017-03-31] MEDS: PERICOLACE PO SCH ×2 (09:33→21:37)
[2017-03-31] MEDS: CALTRATE 600 PO SCH (09:33)
[2017-03-31] MEDS: LACTULOSE PO SCH ×2 (09:34→21:36)
[2017-03-31] MEDS: ALDACTONE PO SCH (09:34)
[2017-03-31] MEDS: JANUVIA PO SCH (09:34)
[2017-03-31] MEDS: EFFEXOR PO SCH (09:34)
[2017-03-31] MEDS: PATIENT'S OWN MED PO SCH ×2 (09:35→09:36)
[2017-03-31] MEDS ORDERED: INSULIN PEN NEEDLES ONE (16:34)
[2017-03-31] MEDS: DESYREL PO SCH (21:37)
[2017-03-31] MEDS: LANTUS SUBQ SCH (21:38)
[2017-04-01] MEDS: ROXANOL CONC. LIQUID SL PRN (01:07)
[2017-04-01] MEDS: PRILOSEC PO SCH (06:24)
[2017-04-01] MEDS: HUMALOG SUBQ SCH ×3 (06:24→16:55)
[2017-04-01] MEDS: PERICOLACE PO SCH ×2 (09:33→20:42)
[2017-04-01] MEDS: LACTULOSE PO SCH ×2 (09:33→20:42)
[2017-04-01] MEDS: CORGARD PO SCH (09:33)
[2017-04-01] MEDS: EFFEXOR PO SCH (09:33)
[2017-04-01] MEDS: CALTRATE 600 PO SCH (09:33)
[2017-04-01] MEDS: ZYRTEC PO SCH (09:33)
[2017-04-01] MEDS: ALDACTONE PO SCH (09:33)
[2017-04-01] MEDS: JANUVIA PO SCH (09:33)
[2017-04-01] MEDS: PATIENT'S OWN MED PO SCH (09:34)
--- NOTE | 2017-04-01 10:48 | PROGRESS NOTE ---
DATE: 04/01/2017 SUBJECTIVE: Subjectively, Ms. Johansen is doing better. The patient denied any unusual pain. No nausea or vomiting. No high-grade fever or chills. The patient claims she wants to go home. The patient is on respite care. OBJECTIVE: Vital Signs: Her vital signs noted. Lungs: Bibasilar crepitations. Cardiovascular: S1 and S2 heard. Abdomen: Soft, nontender. Bowel sounds present. 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 PATIENT'S PROBLEM LIST: 1. Hypertension. Blood pressure doing better. 2. Diabetes mellitus. Accu-Chek results reviewed. 3. History of lung cancer. 4. Cirrhosis of the liver. Her medication and Accu-Chek results reviewed. Overall, the patient is doing better. I am going to put her on oxygen on p.r.n. basis. Continue rest of the treatment and close observation. cc: MD Roman Grimm MD
[2017-04-01] MEDS: NORCO-7.5 PO PRN (20:41)
[2017-04-01] MEDS: DESYREL PO SCH (20:42)
[2017-04-01] MEDS: LANTUS SUBQ SCH (20:42)
[2017-04-02] MEDS: ATIVAN PO PRN ×4 (00:23→22:13)
[2017-04-02] MEDS: HUMALOG SUBQ SCH ×3 (06:33→16:44)
[2017-04-02] MEDS: PRILOSEC PO SCH (09:33)
[2017-04-02] MEDS: ZYRTEC PO SCH (09:33)
[2017-04-02] MEDS: EFFEXOR PO SCH (09:34)
[2017-04-02] MEDS: PERICOLACE PO SCH ×2 (09:34→21:28)
[2017-04-02] MEDS: CORGARD PO SCH (09:34)
[2017-04-02] MEDS: ALDACTONE PO SCH (09:34)
[2017-04-02] MEDS: JANUVIA PO SCH (09:34)
[2017-04-02] MEDS: CALTRATE 600 PO SCH (09:34)
[2017-04-02] MEDS: PATIENT'S OWN MED PO SCH (09:35)
[2017-04-02] MEDS: LACTULOSE PO SCH ×2 (09:35→21:28)
[2017-04-02] MEDS: NORCO-7.5 PO PRN (10:55)
[2017-04-02] MEDS: DESYREL PO SCH (21:28)
[2017-04-03] MEDS: LANTUS SUBQ SCH (00:04)
--- NOTE | 2017-04-03 03:49 | PROGRESS NOTE ---
DATE: 04/02/2017 SUBJECTIVE: Respite care. REVIEW OF SYSTEMS: None reported. Doing very well. Blood sugars are running around 200. PHYSICAL EXAMINATION: Vital Signs: She is afebrile. Vitals are stable. HEENT Examination: Within normal limits. Neck: Supple. Chest: Clear. Heart: Heart sounds are regular. Abdomen: Belly is soft, nontender. Good bowel sounds. Neurologic: No neurological deficits. INVESTIGATIONS: None. ASSESSMENT AND PLAN: A 71-year-old, white female admitted to the hospital respite care for 5 days. She was admitted on 03/29/2017. We will discharge her home after 04/03/2017. Continue present palliative services, living will, DNR. LEVEL OF DOCUMENTATION: 15 minutes. cc: Roman Reich MD
[2017-04-03] MEDS: HUMALOG SUBQ SCH (06:22)
[2017-04-03] MEDS: PRILOSEC PO SCH (06:22)
[2017-04-03 07:47] VITALS: BP 189/67
[2017-04-03] MEDS: LACTULOSE PO SCH (08:54)
[2017-04-03] MEDS: CORGARD PO SCH (08:55)
[2017-04-03] MEDS: JANUVIA PO SCH (08:55)
[2017-04-03] MEDS: CALTRATE 600 PO SCH (08:55)
[2017-04-03] MEDS: ALDACTONE PO SCH (08:55)
[2017-04-03] MEDS: PERICOLACE PO SCH (08:55)
[2017-04-03] MEDS: PATIENT'S OWN MED PO SCH (08:55)
[2017-04-03] MEDS: ZYRTEC PO SCH (08:55)
[2017-04-03] MEDS: EFFEXOR PO SCH (08:55)
[2017-04-03] MEDS: NORCO-7.5 PO PRN (09:03)
--- NOTE | 2017-04-03 18:47 | DISCHARGE SUMMARY ---
ADMISSION DATE: 03/29/2017 DISCHARGE DATE: 04/03/2017 DISCHARGING DIAGNOSES: Respite care for 5 days with a diagnosis of cirrhosis due to LORENZ, COPD, left lung cancer, depression, type 2 diabetes, acid reflux disease, hypertension, osteoarthritis, lichen sclerosis. BRIEF HISTORY: Please see the H and P that was done on 03/29/2017. In brief, she is a 70-year- old white female with above problems was admitted to the hospital respite care for 5 days. She is slowly declining. During this hospital course she did not have any problems. The patient was discharged back home with palliative services. Continue to monitor as progress through the [facility] meetings. DISCHARGE INSTRUCTIONS ARE FOLLOWS: Care of the skin, bladder, and bowels. Zyrtec 10 daily. Calcium 500 daily. Zanaflex 4 mg daily. Januvia 100 daily. Effexor 25 daily. Prilosec 20 daily. Xifaxan 550 p.o. b.i.d. Lactulose 30 p.o. b.i.d. Aldactone 25 daily. Lantus 20 units at bedtime. Icar C Plus 1 tablet daily. Lisinopril 2.5 mg daily. Nadolol 20 daily. Subcu sliding scale with insulin coverage. Magnesium 100 mg daily. Tramadol 50 q.6 as needed for pain. Living will, DNR and will follow up for her progress through the IDG meetings. cc: Roman Reich MD
== END 2017-04-03 10:00 | disposition home or self-care (01) ==
LOC: DIRADM 11:14 → 3N 15:48
PROVIDERS: ADMIT Internal Medicine; ATTEND Internal Medicine